=== PATIENT | female | born 1935 | race Caucasian/White ===

== ENCOUNTER 2017-06-17 12:03 | Outpatient (CLI) | payer MEDICARE, BC ==
[~2017-06-17 12:03] MED LIST: ASCO10007 PO; CHOL100044 PO; LEVE250T2 PO; LEVO88TA5 PO; METO25TA6 PO; VALS160T2 PO
== END 2017-06-17 23:59 | disposition home or self-care (01) ==
LOC: CT 12:03
PROVIDERS: ATTEND Family Medicine
DX: I67.2 Cerebral atherosclerosis (principal)
CPT/HCPCS: 70450-TC